=== PATIENT | male | born 1955 ===

== ENCOUNTER → 2025-07-12 12:54 | Outpatient (CLI) | payer MEDICARE, OTHER, SELFPAY ==
--- NOTE | 2025-07-12 13:00 | DI.ECHO.S_ITS ---
Version: 1 Study ID: [id number] [place] [address] Name: CHRISTINA OCAMPO Study Date: 07/12/2025, 2: 19 PM : 1955 BP: 122 / 84 mmHg Gender: Male Height: 72 in Age: 70 Years Weight: 185 lb BSA: 2.06 mA??? Ordering: LORI WIN Referring: LORI WIN Clinician: Carmen Morel Reason For Study: DIZZINESS History: Summary Statements Normal sinus rhythm. Normal LV size and wall thickness; EF is 60-65%. Normal chamber sizes. No significant valvular abnormalities. No prior echo available for comparison. Procedure: A two-dimensional transthoracic echocardiogram with color flow and Doppler was performed. The study quality was technically adequate. There is no prior echocardiogram noted for this patient. The patient was in sinus rhythm with heart rates between 76-85 bpm during the exam. Left Ventricle: The left ventricle is normal in size and wall thickness. The ejection fraction is estimated to be 60-65%. Normal diastolic function. Right Ventricle: The right ventricle is normal size. The right ventricular systolic function is normal. Atria: The left atrial size is normal. Right atrial size is normal. There is no Doppler evidence for an interatrial shunt. Mitral Valve: The mitral valve leaflets appear to open well. There is trace mitral regurgitation. Aortic Valve: The aortic valve is trileaflet. The aortic valve opens well. There is no aortic valve stenosis. No aortic regurgitation is present. Tricuspid Valve: The tricuspid valve leaflets are thin and pliable. No tricuspid regurgitation. Pulmonary artery pressures cannot be estimated because of the lack of a measurable TR jet velocity but the IVC suggests a CVP of around 3 mmHg. Pulmonic Valve: The pulmonic valve leaflets are thin and pliable; valve motion is normal. There is no pulmonic valvular regurgitation. Great Vessels: The aortic root is normal size. The dimensions of the ascending aorta are normal. The IVC is of normal diameter and collapses greater than 50% with a sniff. This suggests a low right atrial pressure of 3 mm Hg. Pericardium/ Pleura: There is no pericardial effusion. There is no pleural effusion. 2D and M-Mode Measurements and Calculations LVIDd: 4.6 cm LVOT diam: 2.10 cm LVIDs: 2.7 cm Ao root diam: 3.2 cm IVSd: 0.85 cm asc Aorta Diam: 3.4 cm LVPWd: 0.79 cm Ao Arch Diam (Prox Trans): 3.4 cm LV cronin. diameter/BSA (cm/m^2): 2.24 LV sys. diameter/BSA (cm/m^2): 1.31 RVD1 (basal): 3.4 cm RVD2 (mid): 3.0 cm TAPSE: 1.48 cm LA A4 area: 15.8 director river restoration??? IVC diam: 1.67 cm LA A2 area: 10.9 director river restoration??? RA area: 13.9 director river restoration??? LA length (vol): 5.2 cm RA long axis: 4.6 cm LA vol: 28.3 ml RA vol: 35.4 ml LA vol index: 13.7 ml/mA??? RA : 17.2 ml/mA??? Doppler Measurements and Calculations Ao V2 max: 124.5 cm/sec LVOT Max Nate: 109.0 cm/sec Ao V2 mean: 88.6 cm/sec LV V1 max P.8 mmHg Ao V2 VTI: 22.8 cm LV V1 VTI: 19.5 cm Ao max P.2 mmHg SV(LVOT): 67.7 ml Ao mean P.4 mmHg ROHITH(I,D): 3.0 director river restoration??? ROHITH(V,D): 3.0 director river restoration??? ROHITH indexed to BSA (cm^2/m^2): 1.44 sev ratio: 0.86 MV E max nate: 46.5 cm/sec MV dec time: 0.24 sec MV A max nate: 60.9 cm/sec MV E/A: 0.76 Med Peak E' Nate: 6.9 cm/sec Lat Peak E' Nate: 9.3 cm/sec E/e' average: 5.9 PA V2 max: 79.9 cm/sec PA mean P.43 mmHg Electronically signed by: Rehana Grayson M.D. 07/13/2025, 1: 35 AM
--- NOTE | 2025-07-12 13:01 | DI.US.S_ITS ---
PROCEDURE: US CAROTID DOPPLER BI INDICATIONS: DIZZINESS TECHNIQUE: Color and pulse Doppler interrogation was performed of both carotid systems, with image documentation and velocity measurements. COMPARISON: None. FINDINGS: Stenosis calculations are based on SRU (Society of Radi[employer] in Ultras[employer]) criteria. The flow velocities and the arterial waveforms are normal within both carotid arterial systems. The estimated degree of internal carotid artery stenosis is less than 50%. Antegrade flow is confirmed within both vertebral arteries. IMPRESSION: Normal. Dictated by: Pepito Pérez M.D. on 07/12/2025 at 16:26 Approved by: Pepito Pérez M.D. on 07/12/2025 at 16:26
== END ==
PROVIDERS: Referring Provider Family Medicine; Visit Provider Family Medicine
DX: R42 Dizziness and giddiness (principal)
CPT/HCPCS: 93306; 93880

== ENCOUNTER → 2025-07-26 12:02 | Outpatient (CLI) | payer MEDICARE, OTHER, SELFPAY ==
--- NOTE | 2025-07-26 12:06 | DI.MRI.S_ITS ---
PROCEDURE: MR HEAD/BRAIN WO CON INDICATIONS: persistent dizziness TECHNIQUE: Non-contrast axial T1 spin echo, axial T2 fast spin echo, sagittal and axial FLAIR, coronal T2 fast spin echo, axial gradient echo, axial diffusion and ADC through the brain. COMPARISON: [facility], , CAROTID DOPPLER , 07/12/2025, 16:11. FINDINGS: Image quality: Excellent. CSF spaces: Ventricles appear symmetric in size and shape. Basal cisterns are patent. No extra-axial fluid collections. Brain: No intracranial bleeds or mass effects. There is cerebral volume loss for age. There are periventricular and deep white matter chronic small vessel ischemic changes. Brainstem appears normal. Diffusion-weighted images show no acute infarct. No chronic ischemic insults. Normal intravascular flow voids are present. Skull and face: Calvarial bone marrow is normal in signal. Orbits are normal. Sinuses: Sinuses and mastoids are clear. IMPRESSION: No imaging explanation is found for this patient's presenting symptoms. No masses or abnormal enhancement can be seen. No findings of acute or subacute infarction can be seen. No prior territorial infarct can be seen. To the limits of this noncontrast study, no findings of intracranial masses or mass effect can be seen. Dictated by: Pepito Pérez M.D. on 07/26/2025 at 13:24 Approved by: Pepito Pérez M.D. on 07/26/2025 at 13:25
== END ==
DX: R42 Dizziness and giddiness (principal)
CPT/HCPCS: 70551